=== PATIENT | male | born 1955 | race Caucasian/White ===

== ENCOUNTER → 2022-04-28 | Day surgery (SDC) | payer BC ==
--- NOTE | 2022-04-28 12:57 | RAD REPORT ---
EXAM DESCRIPTION: US - Biopsy Lymph Node - 04/28/2022 11:06 am CLINICAL HISTORY: R19.09 COMPARISON: Extremity Nonvascular Complete dated 04/20/2022 TECHNIQUE: Patient presents for ultrasound-guided biopsy of abnormal left inguinal lymphadenopathy. Prior imaging studies were reviewed. The ultrasound-guided biopsy procedure, risks and alternatives were discussed with the patient in det ail. After answering all questions both oral and written consent were obtained. Patient had no contra indicated allergy or medication history. Preliminary imaging identified large bulky left inguinal lymph nodes. These lymph nodes lacks the usu al hyperechoic fatty hilum. Increased vascularity was noted. Lymph node was selected in the upper or inguinal region. Skin was prepped and draped in the usual norma rile fashion. Skin and deeper tissues were anesthetized with 1% lidocaine. Under sonographic guidance a 17 gauge introducer needle was advanced and placed at the inferior margin of the abnormal lymph no de. An 18 gauge needle was then advanced through the introducer needle into the lymph node. A 2 centi meter core biopsy was obtained. There were 3 additional 18 gauge core biopsies obtained. All material was given to pathology for histology assessment. The introducer needle was removed. Hemostasis was obtained at the puncture site. Sterile bandage was placed at the puncture site. Post biopsy imaging showed no hematoma in the soft tissues. Postprocedur e care and precaution instructions were given to the patient. IMPRESSION: Ultrasound-guided core biopsy was performed of 1 of the large abnormal appearing left in guinal lymph nodes. All obtained material was given to pathology for histologic assessment. Patient tolerated procedure well without complications.
== END ==
LOC: FNA 08:00
PROVIDERS: ATTEND Surgery
DX: R19.09 Other intra-abdominal and pelvic swelling, mass and lump (principal)
CPT/HCPCS: 38505; 76942; 88305